=== PATIENT | male | born 1950 | race Caucasian/White ===

== ENCOUNTER 2018-02-15 10:30 | Emergency (ER) | payer OTHER ==
[~2018-02-15] VITALS: Ht 170.2 cm; Wt 83.9 kg
[2018-02-15] MEDS ORDERED: AMARYL (10:44)
[2018-02-15] MEDS ORDERED: LIPITOR40 MG (10:44)
[2018-02-19] MEDS ORDERED: DAFLONEX-XL TA1 EACH PO (12:51)
[2018-02-19] MEDS ORDERED: ADULT ASPIRIN81 MG PO (12:52)
[2018-02-19] MEDS ORDERED: LIPITOR40 MG PO (12:52)
== END 2018-02-15 19:08 | disposition home or self-care (01) ==
LOC: ER 10:30
DX: K62.5 Hemorrhage of anus and rectum (principal); K62.89 Other specified diseases of anus and rectum

== ENCOUNTER 2018-02-20 05:18 | Day surgery (SDC) | payer OTHER ==
[~2018-02-20 05:18] MED LIST: ADULT ASPIRIN81 MG PO; AMARYL; DAFLONEX-XL TA1 EACH PO; LIPITOR40 MG; LIPITOR40 MG PO
[2018-02-20] MEDS ORDERED: PERCOCET 5-3251 EACH PO (08:51)
[2018-02-20] MEDS ORDERED: RECTICARE30 GM TOP (08:51)
== END 2018-02-20 12:15 | disposition home or self-care (01) ==
LOC: CIR.AMB 05:18
DX: K60.1 Chronic anal fissure (principal)

== ENCOUNTER 2023-02-02 10:45 | Emergency (ER) | payer OTHER ==
[~2023-02-02] VITALS: Ht 170.2 cm; Wt 83.0 kg
[~2023-02-02 10:45] MED LIST changes: +PERCOCET 5-3251 EACH PO; +RECTICARE30 GM TOP
== END 2023-02-02 14:22 | disposition home or self-care (01) ==
LOC: ER 10:45
DX: S43.491A Other sprain of right shoulder joint, initial encounter (principal); W19.XXXA Unspecified fall, initial encounter; Y93.9 Activity, unspecified; Y92.89 Other specified places as the place of occurrence of the external cause; Y99.9 Unspecified external cause status; E11.9 Type 2 diabetes mellitus without complications; Z79.84 Long term (current) use of oral hypoglycemic drugs